=== PATIENT | male | born 1995 | race African-American/Black ===

== ENCOUNTER 2016-09-07 21:59 | Inpatient (IN) | payer BC ==
--- NOTE | ~2016-09-07 | PN ---
Unit #: [id number] #: [id number] Patient: GLENDA GABRIEL [id number] [facility] [address] [place] [address] [id number] MR#: [id number] NAME: GLENDA GABRIEL ROOM: P256 Age: 21 Sex: M Admission Date: 09/07/2016 : 1995 Attending Physician: Raul Soto M.D. Admitting Physician: aRul Soto M.D. Primary Care Physician: Primary Care Physician Kerri COMBS PROGRESS NOTES DATE OF SERVICE: 09/09/[address] [facility], room #256, bed #2. SUBJECTIVE This is a 21-year-old male, here with ongoing issues of significant depression, suicidal ideation, multi-bipolar disorder. The patient reports today feeling "better," had a better affect, better eye contact, more energy in his presentation. He reports sleeping well last night with the change to Risperdal and tolerating the antidepressant in addition as well. Overall, the patient SSI seems to be better today resolving. The patient had been to groups and activities. No complaints with medications or issues on the unit. Much more positive and goal focused today. MENTAL STATUS EXAMINATION General appearance is a moderately groomed male, appears to stated age, fairly pleasant, cooperative, responsive to the interview process. Speech was clear and coherent . Mood was "better" with a congruent affect. Thought process and content were grossly organized and linear. Little bit of psychosis. The patient denied any active SI at this time. No HI. The patient's memory was grossly intact. Associations were normal. Cognitive function was at baseline. Alert and oriented x4. Insight and judgment were improving. RECOMMENDATIONS Continue the patient's admission today for further safety and stabilization to make sure progress is able to be maintained especially with medications just being started. Possible discharge tomorrow with progress. Continue to follow up with my office with another provider, inability to currently take patient on an outpatient basis. Dictated by... Raul Soto M.D. SB/miriaml TD: 09/10/2016 01:21 JOB #: [id number] Unit #: [id number] #: [id number] Patient: GLENDA GABRIEL PROGRESS NOTES Page 1 of 1 X Raul Soto MD PROGRESS NOTE
--- NOTE | ~2016-09-07 | HP ---
Unit #: [id number] #: [id number] Patient: FROY GABRIEL [id number] [place] [address] [id number] MR#: [id number] NAME: FROY GABRIEL ROOM: P256 Age: 21 Sex: M Admission Date: 09/07/2016 : 1995 Attending Physician: Raul Soto M.D. Admitting Physician: Raul Soto M.D. Primary Care Physician: Primary Care Physician No HISTORY AND PHYSICAL HISTORY OF PRESENT ILLNESS Froy is a 21 year old admitted to [address] [place] [address] with psychotic behavior. He has been smoking Salvia. PAST MEDICAL HISTORY History of illicit substance abuse. PAST SURGICAL HISTORY Nothing reported. ALLERGIES No known drug allergies. SOCIAL HISTORY Smokes 1 pack per day. Denies alcohol. Admits to a long history of illicit substance abuse to include Salvia. FAMILY HISTORY Medically noncontributory. REVIEW OF SYSTEMS CONSTITUTIONAL: No fever or chills. HEENT: Denies any sore throat, ear pain or runny nose. CARDIOVASCULAR: Denies chest pain, irregular heart rhythm or palpitations. CHEST: Denies shortness of breath or cough. No hemoptysis. GASTROINTESTINAL: Denies nausea, vomiting, diarrhea or chronic constipation. ENDOCRINE: Denies history of increased thirst or urination. No recent significant weight loss or gain. GENITOURINARY: Denies dysuria, frequency, or hematuria. SKIN: Denies any rashes. HEMATOLOGIC: Denies history of increased bleeding or bruising. MUSCULOSKELETAL: Denies any hot, swollen joints. No generalized muscle pain. NEUROLOGIC: Denies problems with vision or speech. No frequent, severe headaches. No numbness, tingling or weakness in any extremities. Denies loss of bladder or bowel control. CURRENT MEDICATIONS 1. Zoloft 25 mg daily. 2. Risperdal 2 mg q.h.s. 3. Milk of Magnesia p.r.n. 4. Maalox p.r.n. Unit #: [id number] #: [id number] Patient: FROY GABRIEL 5. Tylenol p.r.n. PHYSICAL EXAMINATION GENERAL: Alert, very large, no apparent distress. VITAL SIGNS: Blood pressure 144/80, heart rate 56, respirations 16, temperature 98.6. WEIGHT: 280. HEIGHT: 6 feet 4 inches. SKIN: Warm and dry without rash or lesion. HEENT: Normocephalic. TMs not viewed. Oral and nasal passages clear. Conjunctivae clear. PERRLA. EOMs intact. NECK: Supple without lymphadenopathy or thyromegaly. HEART: Regular rate and rhythm without murmur. LUNGS: Clear. ABDOMEN: Soft, nontender. : Not done. EXTREMITIES: No evidence of cyanosis, clubbing or edema. Moves all without focal deficit. NEUROLOGICAL: Grossly within normal limits. Cranial Nerves: II: Visual alcantara are intact. III, IV AND : Extraocular movements are intact. Pupils are equal, round and reactive to light. V: Facial sensation is grossly normal. VII: Facial movements and expression are normal. VIII: Auditory acuity grossly intact. IX, X: Uvula is midline. Phonation is normal. XI: Patient shrugs shoulders and turns head normally. XII: Tongue protrudes in the midline. Sensory and Motor Function: Sensory and motor sensation is grossly normal. Motor: moves all extremities well. Coordination: Gait is normal. Deep Tendon Reflexes: Intact. IMPRESSION Psychiatric admission. RECOMMENDATIONS PSYCHIATRIC: Per psychiatrist. MEDICAL: See no contraindications to participate in facility's activities. MEDICAL PROGNOSIS Good. MEDICAL CONDITION Stable. Dictated by... Juan GiffordALandy-Alejandrina. for Alicia Cohen/qi TD: 09/08/2016 20:17 JOB #: [id number] Unit #: [id number] #: [id number] Patient: FROY GABRIEL HISTORY AND PHYSICAL Page 1 of 1 X Leena Richards HISTORY AND PHYSICAL
--- NOTE | ~2016-09-07 | PA ---
Unit #: [id number] #: [id number] Patient: GLENDA GABRIEL [id number] [place] [address] [id number] MR#: [id number] NAME: GLENDA GABRIEL ROOM: P256 Age: 21 Sex: M Admission Date: 09/07/2016 : 1995 Date of Assessment: 09/08/2016 Attending Physician: Raul Soto M.D. Admitting Physician: Raul Soto M.D. Primary Care Physician: Primary Care Physician No PSYCHIATRIC ASSESSMENT LOCATION [facility], [address] [place] [address], room #256, bed #2. DATE OF SERVICE 09/08/2016. INFORMANT The patient and chart, both seem reliable. CHIEF COMPLAINT "I've been dealing with suicidality a long time and depression." HISTORY OF PRESENT ILLNESS This is a 21-year-old male, who presented last night to [facility] with issues of acute on chronic suicidal ideation and depression. The patient has apparently been dealing with this since he was an adolescent and attempted suicide at that time, but he has never been in treatment of any kind. He has also been using marijuana and Salvia on a near daily basis, which seems to be only compounding the problem. The patient reports symptoms of extreme depression, mood instability, poor sleep with only getting between 1 and 4 hours at night, constant suicidal ideation with thoughts of wanting to harm himself yesterday. The patient cannot provide a specific stressor or trigger that lodged it other than he just felt overwhelmed and could not take it any more. The patient continued to be vaguely suicidal now, but denies any clear plan. His mood seemed dysphoric with a blunted affect, but he was responsive and appropriate during my interactions. The patient also described issues with racing thoughts, simply "can't turn them off," problems with mood swings, periods of unexplained elation, they were always short lived. The patient denied any other drugs or substances, but is open for carnal aspects at this time. PAST PSYCHIATRIC HISTORY As noted above, but no official treatment inpatient or out before. Now, at least one previous suicide attempt, chronic suicidality in place and substance abuse. FAMILY HISTORY Noncontributory. SOCIAL HISTORY The patient lives at home with his parents. He is currently unemployed. His brother also lives there and has apparently special needs. Denies any Unit #: [id number] #: [id number] Patient: GLENDA GABRIEL legal issues. MEDICAL HISTORY Nothing acute or chronic. MEDICATION HISTORY The patient is not on anything. ALLERGIES Include no known drug allergies. SUBSTANCE ABUSE HISTORY As noted above. No previous CD treatment. The patient denied any other substances or issues at least on a regular basis or even recreationally. MENTAL STATUS EXAMINATION General appearance; this is a moderately groomed male, appears stated age, fairly pleasant, cooperative, responsive to the interview process. Speech was generally clear and coherent with normal prosody. Mood was depressed with a blunted affect. Thought process and content were fairly organized and linear. No overt psychosis. Some active hopelessness and vague SI, but no clear plan now. No evidence of HI. The patient's memory was grossly intact. Associations were normal. He is alert and oriented x4. Cognitive function seems to be at baseline. Insight and judgment are limited. ASSETS AND LIABILITIES Assets include good supportive family. Liabilities include employment, no previous treatment officially before, no history of medication treatment. ADMITTING DIAGNOSES 1. Highly suspicious for bipolar disorder, depressed, severe without psychotic features. 2. Cannabis dependency. PSYCHIATRIC PLAN To continue the patient's admission for safety and stabilization for ongoing issues with mood instability, suicidality and comorbid substance abuse. The patient is currently on 72 hour hold and remain on that for the time being given concerns of patient's flight risk. The patient apparently initially denied SI when he first came onto the unit last night. There was some concern that might have been a response to being here regardless he does remain a high risk and will remain on hold for now. We will start the patient on Risperdal 2 mg at night to help with sleep and mood stabilization with a small dose of Zoloft 25 mg a day for depression and anxiety symptoms. The patient will be monitored in the acute controlled environment in the milieu. Treatment goals being resolution of these symptoms in a controlled manner, monitor for side effects and other deleterious issues. The patient was educated about these and we will continue to monitor with him. Discharge planning will most likely include community resources, if not, outpatient IOP program if possible. ESTIMATED LENGTH OF STAY Approximately 3 to 4 days depending on the patient's progress and response to treatment. Unit #: [id number] #: [id number] Patient: GLENDA GABRIEL Dictated by... Alicia Valencia/anthony TD: 09/09/2016 05:05 JOB #: [id number] PSYCHIATRIC ASSESSMENT Page 1 of 1 X Raul Soto MD X PSYCHIATRIC ASSESSMENT
--- NOTE | ~2016-09-07 | DS ---
Unit #: [id number] #: [id number] Patient: GLENDA GABRIEL [id number] [facility] [address] [place] [address] [id number] MR#: [id number] NAME: GLENDA GABRIEL ROOM: P256 Age: 21 Sex: M Admission Date: 09/07/2016 : 1995 Discharge Date: 09/10/2016 Attending Physician: Raul Soto M.D. Primary Care Physician: Primary Care Physician No DISCHARGE SUMMARY REASON FOR ADMISSION Suicidal ideation, depression, of significant period of years, compounding recently without clear cause. DIAGNOSTIC STUDIES LABORATORY DATA: The patient had routine blood work ordered in terms of toxicology screen that was positive for marijuana. Urinalysis that was within normal parameters. Unfortunately, there was a complication with the patient's blood work, and it was not completed otherwise. (1) __ additional testing. HOSPITAL COURSE The patient was admitted for safety and stabilization for ongoing issues with depression and suicidal ideation. The patient had reported symptoms that had included issues with erratic sleep cycles, mood swings, irritability "ups and downs" periods of brief elation that would last for several days. The patient slept on average no more than 4 to 5 hours a night at best and even less on nights when he felt "he did not need to." There was concern the patient was demonstrating untreated issues with bipolar disorder and was treated accordingly. He was placed on medications with Risperdal 2 mg at bedtime and Zoloft 25 mg daily, the first is a mood stabilizer and the second as issues with depression. The patient had been given Zyprexa the first time he was here and tolerated it well. It is felt the Risperdal was a better alternative in terms of less sedation and weight gain risk for this individual. Regardless over the course of the hospitalization, the patient with decrease in activities as directed. He did well. He tolerated medication changes. The patient showed a rapid improvement in his mood. His affect is brighter. He reported good sleep and appetite but not excessively. He denied any active SI at the time of discharge. He was still focused on followup care outpatient with [facility] under Dr. Garfield Davila (2) __ overall the patient reports that he is feeling "good" and wants to return home with his family. It was felt at the time of discharge he had reached maximum benefit from an inpatient admission and was appropriate for discharge. DISCHARGE DIAGNOSES 1. Bipolar disorder, severe, depressed, without psychotic features. 2. Cannabis dependency. This patient has a longstanding history of cannabis use as self-medicating. DISCHARGE FOLLOWUP PLAN Included Dr. Garfield Davila at [facility]. This is going to be scheduled. Unit #: [id number] #: [id number] Patient: GLENDA GABRIEL DISCHARGE MEDICATIONS Included Risperdal 2 mg at bedtime for mood stabilization and Zoloft 5 mg daily for sleep. CONDITION AT DISCHARGE Improved. DISCHARGE PROGNOSIS Fair given addressing symptoms earlier. The patient responding positively to my treatment. DISCHARGE DIET Regular. DISCHARGE ACTIVITY As tolerated with sobriety from cannabis "encouraged." Dictated by... Raul Soto M.D. DARREL/cele TD: 09/10/2016 10:41 JOB #: [id number] DISCHARGE SUMMARY Page 1 of 1 X Raul Soto MD X DISCHARGE SUMMARY
[2016-09-08 10:54] LABS: AMPHETAMINE NEG (NEG); BARBITURATES NEG (NEG); BENZODIAZEPINES NEG (NEG); COCAINE NEG (NEG); MARIJUANA POS (NEG); OPIATES NEG (NEG); TRICYCLIC ANTIDEPRESSANTS NEG (NEG); U METHADONE NEG (NEG)
[2016-09-08 11:03] LABS: URINE APPEARANCE CLEAR; URINE BILIRUBIN NEG (NEG); URINE BLOOD NEG (NEG); URINE COLOR DK YELLOW; URINE GLUCOSE NEG (NEG); URINE KETONE TRACE (NEG); URINE LEUKOCYTE ESTERASE NEG (NEG); URINE NITRATE NEG (NEG); URINE PROTEIN NEG (NEG); URINE SPECIFIC GRAVITY 1.024 (1.003-1.035)
== END 2016-09-10 13:00 | disposition home or self-care (01) | DRG 885 ==
LOC: P2L 21:59
PROVIDERS: Psychiatry & Neurology Psychiatry
DX: F31.4 Bipolar disorder, current episode depressed, severe, without psychotic features (principal); R45.851 Suicidal ideations; F12.20 Cannabis dependence, uncomplicated; F17.210 Nicotine dependence, cigarettes, uncomplicated
CPT/HCPCS: 80307; 81003